=== PATIENT | female | born 1980 | race Caucasian/White ===

== ENCOUNTER 2020-09-02 05:55 | Emergency (ER) | payer MEDICAID ==
[~2020-09-02] VITALS: Ht 149.9 cm; Wt 55.0 kg
[~2020-09-02 05:55] MED LIST: UNK MEDS
[2020-09-02] MEDS ORDERED: ONDANSETRON HCL 4MG/2ML INJ IV STA (06:06)
[2020-09-02] MEDS ORDERED: SODIUM CHLORIDE 0.9% 1,000 ML IV ONE (06:15)
[2020-09-02 06:27] LABS: BASOPHILS % 0.7 % (0.0-2.0); HEMATOCRIT. 36.3 % (36.0-48.0); HEMOGLOBIN. 11.8 g/dL (12.0-16.0); LYMPHOCYTES % 7.5 % (20.0-50.0); MEAN CORPUSCULAR HEMOGLOBIN 25.1 pg (28.0-32.0); MEAN CORPUSCULAR VOLUME 77.1 fL (81.0-99.0); MEAN PLATELET VOLUME 8.6 fl (7.4-10.4); MONOCYTES % 2.1 % (2.0-8.0); NEUTROPHILS % 89.7 % (40.0-76.0); PLATELET 294 x1000/uL (130-400); RED BLOOD CELL COUNT 4.71 mill/uL (4.2-5.4); RED CELL DISTRIBUTION WIDTH 16.6 % (11.6-14.6)
[2020-09-02] MEDS ORDERED: MORPHINE SULFATE 4 MG/ML CPJ (NOT FOR IM USE) IV ONE (06:30)
[2020-09-02 06:32] LABS: CHLORIDE 108 mEq/L (98-107)
[2020-09-02 06:36] LABS: ETHANOL BLOOD < 10 mg/dL
[2020-09-02 06:45] LABS: PROTHROMBIN TIME 10.9 sec (9.6-11.0)
[2020-09-02 06:53] LABS: HCG SCREEN NEGATIVE
[2020-09-02 07:02] LABS: CLARITY URINE CLEAR (CLEAR); COLOR URINE YELLOW (YELLOW); KETONES URINE NEGATIVE (NEGATIVE); LEUKOCYTE ESTERASE URINE NEGATIVE (NEGATIVE); NITRITE URINE NEGATIVE (NEGATIVE); OCCULT BLOOD URINE NEGATIVE (NEGATIVE); PH URINE 6.5 (4.5-8.0); PROTEIN URINE NEGATIVE (NEGATIVE); SPECIFIC GRAVITY URINE 1.009 (1.005-1.030); UROBILINOGEN URINE 0.2 E.U./dL (0.2-1.0)
[2020-09-02 07:11] LABS: *AMPHETAMINES SCREEN URINE NEGATIVE (NEGATIVE); *BARBITURATES SCREEN URINE NEGATIVE (NEGATIVE); *BENZODIAZEPINES SCREEN URINE NEGATIVE (NEGATIVE); *COCAINE SCREEN URINE NEGATIVE (NEGATIVE)
[2020-09-02 07:12] LABS: CANNABINOID URINE SCREEN NEGATIVE (NEGATIVE); METHADONE URINE SCREEN NEGATIVE (NEGATIVE); OPIATES URINE SCREEN NEGATIVE (NEGATIVE); PHENCYCLIDINE URINE SCREEN NEGATIVE (NEGATIVE)
[2020-09-02] MEDS ORDERED: KETOROLAC 30MG/ML VIAL IV ONE (08:30)
[2020-09-02] MEDS ORDERED: LORAZEPAM 2MG/ML CPJ IV ONE (09:45)
[2020-09-02] MEDS ORDERED: ONDANSETRON HCL 4MG/2ML INJ IV PRN (11:45)
[2020-09-02] MEDS ORDERED: ACETAMINOPHEN 325MG TABLET PO PRN (11:45)
[2020-09-02] MEDS ORDERED: PIPERACILLIN/TAZ 3.375G PREMIX 50 ML IV SCH (12:00)
[2020-09-02 21:30] VITALS: BP 113/72
[2020-09-03] MEDS ORDERED: PROT20 MT (17:59)
== END 2020-09-02 22:01 | disposition home or self-care (01) ==
LOC: ER 05:55 → EDBEDREQ 11:01 → CANRESERV 21:38 → ENRESERV 21:38 → ER 22:01 → CANBEDREQ 09-03 02:27
DX: R10.32 Left lower quadrant pain (principal); D72.829 Elevated white blood cell count, unspecified; R74.01 Elevation of levels of liver transaminase levels; E87.8 Other disorders of electrolyte and fluid balance, not elsewhere classified; Z90.49 Acquired absence of other specified parts of digestive tract; Z88.1 Allergy status to other antibiotic agents
CPT/HCPCS: 36415; 71045; 74176; 76700; 76830; 76856; 80053; 80305; 80320; 81003; 83690; 84484; 84703; 85025; 85610; 93005; 96361; 96365; 96366; 96375; 99285; J1885; J2060; J2270; J2405; J2543; J7030; Z7610; G0480

== ENCOUNTER 2020-09-03 10:16 | Emergency (ER) | payer MEDICAID ==
[~2020-09-03] VITALS: Ht 149.9 cm; Wt 55.0 kg
[2020-09-03] MEDS ORDERED: MORPHINE SULFATE 4 MG/ML CPJ (NOT FOR IM USE) IV STA (10:49)
[2020-09-03] MEDS ORDERED: FAMOTIDINE 20MG/2ML VIAL IV STA (10:49)
[2020-09-03] MEDS ORDERED: MAGNESIUM/ALUMINUM HYDROXIDE/SIMETHICONE 30ML UDC PO STA (10:49)
[2020-09-03] MEDS ORDERED: SODIUM CHLORIDE 0.9% 1,000 ML IV ONE (11:00)
[2020-09-03 11:19] LABS: CLARITY URINE CLEAR (CLEAR); COLOR URINE YELLOW (YELLOW); KETONES URINE NEGATIVE (NEGATIVE); LEUKOCYTE ESTERASE URINE NEGATIVE (NEGATIVE); NITRITE URINE NEGATIVE (NEGATIVE); OCCULT BLOOD URINE NEGATIVE (NEGATIVE); PH URINE 6.5 (4.5-8.0); PROTEIN URINE NEGATIVE (NEGATIVE); SPECIFIC GRAVITY URINE 1.012 (1.005-1.030)
[2020-09-03 11:55] LABS: BASOPHILS % 0.7 % (0.0-2.0); EOSINOPHILS % 1.3 % (0.0-5.0); HEMATOCRIT. 35.8 % (36.0-48.0); HEMOGLOBIN. 11.6 g/dL (12.0-16.0); LYMPHOCYTES % 34.1 % (20.0-50.0); MEAN CORPUSCULAR HEMOGLOBIN 25.3 pg (28.0-32.0); MEAN CORPUSCULAR VOLUME 78.3 fL (81.0-99.0); MEAN PLATELET VOLUME 8.9 fl (7.4-10.4); MONOCYTES % 9.2 % (2.0-8.0); NEUTROPHILS % 54.7 % (40.0-76.0); PLATELET 267 x1000/uL (130-400); RED BLOOD CELL COUNT 4.57 mill/uL (4.2-5.4); RED CELL DISTRIBUTION WIDTH 16.6 % (11.6-14.6)
[2020-09-03 12:05] LABS: CHLORIDE 109 mEq/L (98-107)
[2020-09-03 12:16] LABS: HCG SCREEN NEGATIVE
[2020-09-03 13:34] LABS: HEPATITIS B SURFACE ANTIGEN NEGATIVE
[2020-09-03 14:04] LABS: HEPATITIS A AB IGM NEGATIVE (NEGATIVE)
[2020-09-03] MEDS ORDERED: IOHEXOL-300 100 ML BOTTLE ONE (15:02)
[2020-09-03] MEDS ORDERED: ONDANSETRON HCL 4MG/2ML INJ IV NR (15:30)
[2020-09-03] MEDS ORDERED: LORAZEPAM 2MG/ML CPJ IV ONE (16:00)
[2020-09-03] MEDS ORDERED: PROT20 MT (17:59)
[2020-09-03 18:43] VITALS: BP 108/66
== END 2020-09-03 18:45 | disposition home or self-care (01) ==
LOC: ER 10:16
DX: K76.0 Fatty (change of) liver, not elsewhere classified (principal); R94.5 Abnormal results of liver function studies; R10.13 Epigastric pain; N63.0 Unspecified lump in unspecified breast; E28.2 Polycystic ovarian syndrome; Z88.1 Allergy status to other antibiotic agents; Z90.49 Acquired absence of other specified parts of digestive tract
CPT/HCPCS: 36415; 74177; 80053; 81003; 83690; 84703; 85025; 85610; 86705; 86709; 86803; 87340; 93005; 96374; 96375; 99285; J2060; J2270; J2405; J3490; Q9967; Z7610

== ENCOUNTER 2023-03-05 06:01 | Emergency (ER) | payer MEDICAID, OTHER ==
[~2023-03-05] VITALS: Ht 149.9 cm; Wt 54.0 kg
[~2023-03-05 06:01] MED LIST changes: +CEPH500C2 MT; +FAMO-135 PO; +OMEP40CA20 PO; +PROT20 MT; -UNK MEDS
[2023-03-05 06:10] VITALS: O2SAT 99
[2023-03-05 08:20] LABS: BASOPHILS % 0.6 % (0.0-2.0); DIFFERENTIAL COMMENT 0; EOSINOPHILS % 0.1 % (0.0-5.0); HEMATOCRIT. 36.5 % (36.0-48.0); HEMOGLOBIN. 11.9 g/dL (12.0-16.0); LYMPHOCYTES % 27.8 % (20.0-50.0); MEAN CORPUSCULAR HEMOGLOBIN 25.9 pg (28.0-32.0); MEAN CORPUSCULAR HGB CONC 32.6 g/dL (31.0-37.0); MEAN CORPUSCULAR VOLUME 79.3 fL (81.0-99.0); MEAN PLATELET VOLUME 8.9 fl (7.4-10.4); MONOCYTES % 5.8 % (2.0-8.0); NEUTROPHILS % 65.7 % (40.0-76.0); PLATELET 310 x1000/uL (130-400); RED CELL DISTRIBUTION WIDTH 16.8 % (11.6-14.6); WHITE BLOOD COUNT 8.5 x1000/uL (4.5-11.0)
[2023-03-05 08:29] LABS: CHLORIDE 108 mEq/L (98-107); INDEX HEMOLYSI 1 (1-3); INDEX ICTERIC 1 (1-4); INDEX LIPEMIC 1 (1-3); POTASSIUM 3.7 mEq/L (3.5-5.1); SODIUM 137 mEq/L (136-145)
[2023-03-05] MEDS ORDERED: ONDANSETRON HCL 4MG/2ML INJ IV ONE (08:30)
[2023-03-05] MEDS ORDERED: LACTATED RINGERS 1,000 ML IV SCH (08:30)
[2023-03-05 08:38] LABS: ALANINE AMINOTRANSFERASE 37 IU/L (13-61); ALBUMIN 4.1 g/dL (3.4-5.0); ASPARTATE AMINOTRANSFERASE 19 IU/L (15-37); BILIRUBIN TOTAL 0.4 mg/dL (0.1-1.0); CALCIUM 9.2 mg/dL (8.5-10.1); CARBON DIOXIDE 22 mEq/L (21-32); CREATININE 0.6 mg/dL (0.6-1.3); GLUCOSE 124 mg/dL (70-105); PROTEIN TOTAL 8.8 g/dL (6.0-8.3); UREA NITROGEN BLOOD 7 mg/dL (7-21)
[2023-03-05 08:43] LABS: HCG SCREEN NEGATIVE
[2023-03-05 09:02] LABS: CLARITY URINE CLOUDY (CLEAR); COLOR URINE YELLOW (YELLOW); GLUCOSE URINE NEGATIVE (NEGATIVE); KETONES URINE NEGATIVE (NEGATIVE); LEUKOCYTE ESTERASE URINE 3+ (NEGATIVE); NITRITE URINE NEGATIVE (NEGATIVE); OCCULT BLOOD URINE NEGATIVE (NEGATIVE); PH URINE 7.5 (4.5-8.0); PROTEIN URINE NEGATIVE (NEGATIVE); SPECIFIC GRAVITY URINE 1.014 (1.005-1.030); UROBILINOGEN URINE 0.2 E.U./dL (0.2-1.0)
[2023-03-05 09:24] LABS: BACTERIA URINE 3+; RBC URINE 0-2 /hpf (0-2); SQUAMOUS EPITHELIAL CELL URINE 2+ /lpf (RARE/1+); YEAST URINE NONE SEEN
[2023-03-05] MEDS ORDERED: LORAZEPAM 2MG/ML CPJ IV ONE (10:00)
[2023-03-05 10:25] VITALS: BP 137/83; PULSE 97; RESP 20; TEMP 98.3
[2023-03-05] MEDS ORDERED: ONDA4TAB11 PO (10:37)
[2023-03-05] MEDS ORDERED: CEFP100T8 MT (10:38)
== END 2023-03-05 10:57 | disposition home or self-care (01) ==
LOC: ER 06:01
DX: R11.2 Nausea with vomiting, unspecified (principal); F41.0 Panic disorder [episodic paroxysmal anxiety]; N39.0 Urinary tract infection, site not specified; Z90.49 Acquired absence of other specified parts of digestive tract; Z98.890 Other specified postprocedural states; Z88.8 Allergy status to other drugs, medicaments and biological substances
CPT/HCPCS: 80053; 81003; 81025; 84703; 83690; 85025; 36415; 93005; 96361; 96374; 96375; 99284; J2060; J2405; Z7610 ×3